=== PATIENT | male | born 1980 | race Caucasian/White ===

== ENCOUNTER 2020-08-04 10:16 | Emergency (ER) | payer OTHER ==
[2020-08-04 11:32] LABS: HEMOGLOBIN 15.8 gm/dl (14.0-17.5); RED BLOOD COUNT 5.11 M/UL (4.20-5.50); WHITE BLOOD COUNT 12.5 K/UL (4.5-11.0)
[2020-08-04 12:29] LABS: BUN/CREATININE RATIO 15 (0-10)
[2020-08-04] MEDS ORDERED: HYDROCODON-ACE1 EAC4 PO ×2 (13:24→13:40)
== END 2020-08-04 14:44 | disposition home or self-care (01) ==
LOC: ER1 10:16
PROVIDERS: Emergency Medicine
DX: N13.2 Hydronephrosis with renal and ureteral calculous obstruction (principal); F17.210 Nicotine dependence, cigarettes, uncomplicated
CPT/HCPCS: 80053; 81001; 83690; 85025; 96374; 96375; 96376; 99284; J2270; J2405; J7030